=== PATIENT | female | born 1995 | race Caucasian/White ===

== ENCOUNTER 2017-04-27 14:27 | Emergency (ER) | payer MEDICAID ==
--- NOTE | 2017-04-27 14:38 | ED PDOC ---
Arrival/HPI - General Time Seen by Provider: 04/27/17 14:37 Historian: Patient - History of Present Illness Narrative History of Present Illness (Text): 04/27/17 14:38 22 y/o female, pmh including ectopic , nkda, c/o pelvic pain x 2 days. Pt. stated that her LMP was on 03/31/2017, been having pelvic pain since yesterday and spotting started today, no nausea or vomiting, no abdominal pain, no change in appetize or energy level, eating and drinking well, no night sweat , no rash, no numbness or tingling, no other medical or psychological complaints. Past Medical History - Provider Review Nursing Documentation Reviewed: Yes Family/Social History - Physician Review Nursing Documentation Reviewed: Yes Family/Social History: Unknown Family HX Allergies/Home Meds Allergies/Adverse Reactions: Allergies No Known Allergies Allergy (Verified 04/27/17 14:48) Review of Systems - Review of Systems Constitutional: absent: Fatigue, Fevers Eyes: absent: Vision Changes ENT: absent: Hearing Changes Respiratory: absent: SOB, Cough Cardiovascular: absent: Chest Pain Gastrointestinal: absent: Abdominal Pain, Nausea, Vomiting Genitourinary Female: Vaginal Bleeding, Other (+pelvic pain). absent: Dysuria, Frequency, Hematuria, Urine Output Changes, Vaginal Discharge Skin: absent: Rash, Pruritis Neurological: absent: Headache, Dizziness Physical Exam Vital Signs Reviewed: Yes Vital Signs Temp Pulse Resp BP Pulse Ox 04/27/17 16:18 82 17 125/80 99 04/27/17 14:43 97.7 F 63 17 132/80 100 Temperature: Afebrile Blood Pressure: Normal Pulse: Regular Respiratory Rate: Normal Appearance: Positive for: Well-Appearing, Non-Toxic, Comfortable Pain Distress: Moderate Mental Status: Positive for: Alert and Oriented X 3 - Systems Exam Head: Present: Atraumatic, Normocephalic Pupils: Present: PERRL Extroacular Muscles: Present: EOMI Conjunctiva: Present: Normal Mouth: Present: Moist Mucous Membranes Neck: Present: Normal Range of Motion Respiratory/Chest: Present: Clear to Auscultation, Good Air Exchange. No: Respiratory Distress, Accessory Muscle Use Cardiovascular: Present: Regular Rate and Rhythm, Normal S1, S2. No: Murmurs Abdomen: Present: Normal Bowel Sounds. 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 No: Vaginal Discharge, Vaginal Lesions, Adenexal Tenderness, Adenexal Mass, Cervical Motion Tendernes, Odor Back: Present: Normal Inspection Upper Extremity: Present: Normal Inspection. No: Cyanosis, Edema Lower Extremity: Present: Normal Inspection. No: Edema Neurological: Present: GCS=15, Speech Normal, Motor Func Grossly Intact, Gait Normal, Memory Normal Skin: Present: Warm, Dry, Normal Color. No: Rashes Psychiatric: Present: Alert, Oriented x 3, Normal Insight, Normal Concentration Medical Decision Making ED Course and Treatment: 04/27/17 15:01 -UA -Transvaginal sonogram -Toradol IM -Observe and reassess 04/27/17 16:46 -Urine Hcg Negative -Pain resolved, will discharge home. -UA show -Sonogram show: no ovarian cyst but multiple subcentimeter follicles on bilateral ovaries. no other acute finding.s -Discharge home with macrobid, ibuprofen with pepcid, stay hydrated, bed rest, follow up with your own pmd and obgyn within 2 days, return to the ER for any new or worsening signs or symptoms. - Lab Interpretations Lab Results: Lab Results 04/27/17 16:30: Urine Color Yellow, Urine Appearance Clear, Urine pH 6.0, Ur Specific [place] 1.025, Urine Protein Negative, Urine Glucose (UA) Negative, Urine Ketones Negative, Urine Blood Large H, Urine Nitrate Positive H, Urine Bilirubin Negative, Urine Urobilinogen 0.2, Ur Leukocyte Esterase Negative, Urine RBC Pending, Urine WBC Pending - RAD Interpretation Radiology Orders: 04/27/17 14:58 TRANSVAGINAL [US] Stat HISTORY: pelvic pain x 2 days, focus on the ovaries COMPARISON: None available. TECHNIQUE: Transvaginal only. Real -time technique with 2D, duplex and color Doppler FINDINGS: UTERUS: Measures 2.9 x 3 x 5.6 cm. Normal in size and appearance. No fibroid or other mass lesion seen. ENDOMETRIUM: Measures 6.9 mm in diameter. No ultrasound findings to suggest gestational sac, fluid, debris, mass or polyp or other pathologic process within the endometrium. CERVIX: No cervical abnormality identified. RIGHT OVARY: Measures 1.6 x 1.6 x 2.4 cm. No solid mass. Normal flow. Multiple subcentimeter follicles. LEFT OVARY: Measures 1.6 x 1.8 x 2.8 cm. No solid mass. Normal flow. Multiple subcentimeter follicles. FREE FLUID: No significant free fluid noted. OTHER FINDINGS: None. IMPRESSION: No significant or acute findings to account for/ related to the clinical presentation. Solution Mixer: Radiologist - Medication Orders Current Medication Orders: Discontinued Medications Ketorolac Tromethamine (Toradol) 60 mg IM STAT STA Stop: 04/27/17 14:59 Last Admin: 04/27/17 15:03 Dose: 60 mg MAR Pain Assessment Document 04/27/17 15:03 IT (Rec: 04/27/17 15:08 [facility] [id number] Pain Reassessment Is this a pain reassessment? No Sleep Is patient sleeping during reassessment? 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 Disposition/Present on Arrival - Present on Arrival Any Indicators Present on Arrival: No History of DVT/PE: No History of Uncontrolled Diabetes: No Urinary Catheter: No History of Decub. Ulcer: No - Disposition Have Diagnosis and Disposition been Completed?: Yes Diagnosis: Menstrual cramps, Ovarian cyst, UTI (urinary tract infection) Disposition: HOME/ ROUTINE Disposition Time: 15:09 Patient Plan: Discharge Patient Problems: Current Active Problems Problem Status Onset Menstrual cramps Acute Ovarian cyst Acute Condition: IMPROVED Additional Instructions: -Discharge home with macrobid, ibuprofen with pepcid, stay hydrated, bed rest, follow up with your own pmd and obgyn within 2 days, return to the ER for any new or worsening signs or symptoms. Prescriptions: Famotidine [Pepcid] 20 mg PO BID PRN #12 tab PRN Reason: Other Ibuprofen [Motrin Tab] 600 mg PO QID PRN #24 tab PRN Reason: Other Nitrofurantoin Macrocrystals [Macrobid] 100 mg PO BID #14 cap Referrals: Domenica Guadarrama MD [Staff Provider] - Follow up with primary [facility] [place] - Follow up with primary Forms: WORK NOTE
[2017-04-27 14:47] VITALS: RESP 17
[2017-04-27 16:19] VITALS: PULSE 82
--- NOTE | 2017-04-27 16:22 | US ---
HISTORY: pelvic pain x 2 days, focus on the ovaries COMPARISON: None available. TECHNIQUE: Transvaginal only. Real -time technique with 2D, duplex and color Doppler FINDINGS: UTERUS: Measures 2.9 x 3 x 5.6 cm. Normal in size and appearance. No fibroid or other mass lesion seen. ENDOMETRIUM: Measures 6.9 mm in diameter. No ultrasound findings to suggest gestational sac, fluid, debris, mass or polyp or other pathologic process within the endometrium. CERVIX: No cervical abnormality identified. RIGHT OVARY: Measures 1.6 x 1.6 x 2.4 cm. No solid mass. Normal flow. Multiple subcentimeter follicles. LEFT OVARY: Measures 1.6 x 1.8 x 2.8 cm. No solid mass. Normal flow. Multiple subcentimeter follicles. FREE FLUID: No significant free fluid noted. OTHER FINDINGS: None. IMPRESSION: No significant or acute findings to account for/ related to the clinical presentation.
[2017-04-27 16:41] LABS: URINE BILIRUBIN NEGATIVE (NEGATIVE); URINE BLOOD LARGE (NEGATIVE); URINE GLUCOSE (UA) NEGATIVE (NEGATIVE); URINE KETONE NEGATIVE (NEGATIVE); URINE LEUKOCYTE ESTERASE NEGATIVE Leu/uL (NEGATIVE); URINE PROTEIN NEGATIVE mg/dL (<30 mg/dL); URINE UROBILINOGEN 0.2 E.U./dL (<1 E.U./dL)
[2017-04-27 16:45] LABS: URINE APPEARANCE CLEAR (CLEAR); URINE COLOR YELLOW (YELLOW)
[2017-04-27 16:54] VITALS: BP 126/72; TEMP 98.2; O2SAT 98
[2017-04-27 17:12] LABS: URINE BACTERIA LARGE (NEG)
== END 2017-04-27 16:54 | disposition home or self-care (01) ==
LOC: ED 14:27
DX: N94.6 Dysmenorrhea, unspecified (principal); N39.0 Urinary tract infection, site not specified; N83.202 Unspecified ovarian cyst, left side; N83.201 Unspecified ovarian cyst, right side
CPT/HCPCS: 76830; 81001; 87086; 96372; 99283; J1885

== ENCOUNTER 2017-06-18 16:24 | Emergency (ER) | payer MEDICAID ==
--- NOTE | 2017-06-18 17:09 | ED PDOC ---
Arrival/HPI - General Time Seen by Provider: 06/18/17 17:08 Historian: Patient - History of Present Illness Narrative History of Present Illness (Text): 06/18/17 17:09 22 y/o female, pmh including ovarian cyst and UTI, nkda, c/o evaluation for possible ovarian cyst pain. Pt. stated that her period is coming, feels like her usual ovarian cyst pain is coming as she has her usual ovarian cyst pain which this is exactly how it feels like, no vaginal bleeding or discharge, no night sweat, no numbness or tingling, doesn't want to repeat the sonogram for the transvaginal as her last transvaginal sonogram show bilateral ovaries with multiple subcentimeter follicles from 04/27/2017, no night sweat. Pt. was see in the ER last month for the UTI which she feels like she's having same symptom again from the pelvic pain, no chest pain or shortness of breath, no vaginal bleeding or discharge, no other medical or psychological complaints. Past Medical History - Provider Review Nursing Documentation Reviewed: Yes - Psychiatric Hx Substance Use: No - Surgical History Other/Comment: D&E 2 years ago - Anesthesia Hx Anesthesia: No Hx Anesthesia Reactions: No Hx Malignant Hyperthermia: No Family/Social History - Physician Review Nursing Documentation Reviewed: Yes Family/Social History: Unknown Family HX Smoking Status: Never Smoked Hx Alcohol Use: No Hx Substance Use: No Allergies/Home Meds Allergies/Adverse Reactions: Allergies No Known Allergies Allergy (Verified 06/18/17 17:26) Review of Systems - Review of Systems Constitutional: absent: Fatigue, Fevers Eyes: absent: Vision Changes ENT: absent: Hearing Changes Respiratory: absent: SOB, Cough Cardiovascular: absent: Chest Pain Gastrointestinal: Other (+pelvic cramp). absent: Abdominal Pain, Nausea, Vomiting Musculoskeletal: absent: Arthralgias Skin: absent: Rash, Pruritis, Skin Lesions Neurological: absent: Headache, Dizziness Psychiatric: absent: Anxiety, Depression, Suicidal Ideation Physical Exam Vital Signs Reviewed: Yes Vital Signs Temp Pulse Resp BP Pulse Ox 06/18/17 17:22 98.7 F 62 16 113/62 100 Temperature: Afebrile Blood Pressure: Normal Pulse: Regular Respiratory Rate: Normal Appearance: Positive for: Well-Appearing, Non-Toxic, Comfortable Pain Distress: Moderate Mental Status: Positive for: Alert and Oriented X 3 - Systems Exam Head: Present: Atraumatic, Normocephalic Pupils: Present: PERRL Extroacular Muscles: Present: EOMI Conjunctiva: Present: Normal Mouth: Present: Moist Mucous Membranes Neck: Present: Normal Range of Motion Respiratory/Chest: Present: Clear to Auscultation, Good Air Exchange. No: Respiratory Distress, Accessory Muscle Use Cardiovascular: Present: Regular Rate and Rhythm, Normal S1, S2. No: Murmurs Abdomen: Present: Normal Bowel Sounds. No: Tenderness, Distention, Peritoneal Signs, Rebound, Guarding Genitourinary/Pelvic Exam: Present: Other (Pt. declined pelvic examination) Back: Present: Normal Inspection Upper Extremity: Present: Normal Inspection. No: Cyanosis, Edema Lower Extremity: Present: Normal Inspection. No: Edema Neurological: Present: GCS=15, CN II-XII Intact, Speech Normal Skin: Present: Warm, Dry, Normal Color. No: Rashes Psychiatric: Present: Alert, Oriented x 3, Normal Insight, Normal Concentration Medical Decision Making ED Course and Treatment: 06/18/17 17:45 -POC urine -Toradol IM administered if poc is negative -Observe and reassess 06/18/17 18:11 -Urine hcg negative. 06/18/17 18:44 -Pain resolved with the toradol IM -UA show no UTI -Pt. request to be discharged home and declined sonogram for pelvic and transvaginal. -Discharge home with naproxen, bed rest, follow up with your own pmd and obgyn within 2 days, return to the ER for any new or worsening signs or symptoms. - Lab Interpretations Lab Results: Lab Results 06/18/17 18:07: Urine Color Yellow, Urine Appearance Cloudy, Urine pH 8.5, Ur Specific [place] 1.020, Urine Protein Trace H, Urine Glucose (UA) Negative, Urine Ketones Negative, Urine Blood Trace-intact H, Urine Nitrate Negative, Urine Bilirubin Negative, Urine Urobilinogen 1.0 H, Ur Leukocyte Esterase Negative, Urine RBC 1 - 3, Urine WBC 2 - 5, Ur Epithelial Cells 3 - 4, Amorphous Sediment Many, Urine Bacteria Mod - Medication Orders Current Medication Orders: Discontinued Medications Ketorolac Tromethamine (Toradol) 60 mg IM STAT STA Stop: 06/18/17 17:42 Last Admin: 06/18/17 18:14 Dose: 60 mg MAR Pain Assessment Document 06/18/17 18:14 KK (Rec: 06/18/17 18:14 [facility] [id number]) Pain Reassessment Is this a pain reassessment? No Sleep Is patient sleeping during reassessment? No Presence of Pain Presence of Pain Yes Pain Scale Used Pain Scale Used Numeric Location Upper or Lower Lower Pain Location Body Site Abdomen Description Description Pressure Intensity of Pain at present 7 IM Administration Charges Document 06/18/17 18:14 [facility] (Rec: 06/18/17 18:14 [id number]) Injection Site MAR Injection Site Left Gluteus [place] Charges for Administration # of IM Administrations 1 - PA / BUSINESS SERVICES MANAGER / Resident Statement MD/DO has reviewed & agrees with the documentation as recorded. Disposition/Present on Arrival - Present on Arrival Any Indicators Present on Arrival: No History of DVT/PE: No History of Uncontrolled Diabetes: No Urinary Catheter: No History of Decub. Ulcer: No History Surgical Site Infection Following: None - Disposition Have Diagnosis and Disposition been Completed?: Yes Diagnosis: Ovarian cyst Disposition: HOME/ ROUTINE Disposition Time: 18:46 Patient Plan: Discharge Condition: IMPROVED Additional Instructions: -Discharge home with naproxen, bed rest, follow up with your own pmd and obgyn within 2 days, return to the ER for any new or worsening signs or symptoms. Prescriptions: Naproxen 500 mg PO BID PRN #20 tab PRN Reason: Other
[2017-06-18 17:26] VITALS: RESP 16; O2SAT 100
[2017-06-18 18:15] LABS: PH,URINE 8.5 (4.7-8.0); URINE BILIRUBIN NEGATIVE (NEGATIVE); URINE BLOOD TRACE-INTACT (NEGATIVE); URINE GLUCOSE (UA) NEGATIVE (NEGATIVE); URINE KETONE NEGATIVE (NEGATIVE); URINE LEUKOCYTE ESTERASE NEGATIVE Leu/uL (NEGATIVE); URINE PROTEIN TRACE mg/dL (<30 mg/dL)
[2017-06-18 18:18] LABS: URINE APPEARANCE CLOUDY (CLEAR); URINE COLOR YELLOW (YELLOW)
[2017-06-18 18:28] LABS: URINE AMORPHOUS SEDIMENT MANY; URINE BACTERIA MOD (NEG)
[2017-06-18 19:29] VITALS: BP 120/78; PULSE 68; TEMP 98
== END 2017-06-18 19:39 | disposition home or self-care (01) ==
LOC: ED 16:24
DX: N83.209 Unspecified ovarian cyst, unspecified side (principal)
CPT/HCPCS: 81001; 96372; 99282; J1885